=== PATIENT | male | born 1945 | race Caucasian/White ===

== ENCOUNTER 2016-08-01 08:28 | Day surgery (SDC) | payer MEDICARE, BC, OTHER ==
--- NOTE | 2016-07-30 15:16 | HISTORY AND PHYSICAL E ---
History and Physical NAME: JAGDEEP WASHBURN : 1945 AGE: 71Y ADMITTED: 08/01/2016 ROOM: HISTORY OF PRESENT ILLNESS: I saw the patient back in 1988. Colonoscopy did show polyp in the rectum and polyp was inflammatory polyp in the rectum, resected, May 1989. Inflammatory polyp resected in 1988. The patient was seen in 1990 and again he did have history of polyps. The patient did have another colonoscopy 2014 showing diverticulosis and small polyp. SOCIAL HISTORY: He does not smoke. Drinks occasional beer. PHYSICAL EXAMINATION: GENERAL: Pleasant, alert, oriented, in no acute distress. VITAL SIGNS: Blood pressure is 120/80, pulse 80, respirations 18, temp is 98. HEAD, EYES, EARS, NOSE, THROAT: Normal. ABDOMEN: Soft. NEUROLOGIC: Negative. MEDICATIONS: 1. Zyrtec. 2. Aspirin. 3. Prilosec. 4. Diovan. CONCLUSION: Colon screening. PLAN: Colonoscopy scheduled for August 01. DICTATING PHYSICIAN: HUY THOMASON M.D. [id number] PHY#: [id number] ID: [id number] JOB#: [id number] ACCT: [id number] cc:SHAHNAZ CISNEROS M.D., HUY Soliman >
[~2016-08-01 08:28] MED LIST: EPINEPHRINE INJ 1 MG/10 ML DISP.SYRIN ONE; FENTANYL CITRATE INJ/PF 100 MCG/2 ML AMPUL ONE; FLUMAZENIL INJ 0.5 MG/5 ML VIAL IV ONE; GLUCAGON,HUMAN RECOMB 1 MG INJ ONE; GLYCOPYRROLATE INJ 0.4 MG/2 ML VIAL ONE; LIDOCAINE 2% JELLY 30 ML TUBE ONE; MIDAZOLAM 2 MG/2 ML INJ ONE; NALOXONE HCL INJ/PF 0.4 MG/1 ML SDV ONE; ONDANSETRON HCL INJ/PF 4 MG/2 ML SDV ONE; PROMETHAZINE HCL INJ 25 MG/1 ML VIAL ONE
[2016-08-01 10:25] VITALS: BP 146/82
--- NOTE | 2016-08-01 12:07 | DISCHARGE SUMMARY E ---
Discharge Summary NAME: JAGDEEP WASHBURN : 1945 AGE: 71Y ADMITTED: 08/01/2016 DISCHARGED: 08/01/2016 PROCEDURE: Colonoscopy. FINAL DIAGNOSES: 1. Diverticulosis, sigmoid colon and right colon. 2. External hemorrhoids. HISTORY: Patient is 71 and presented for colon exam. He does have a history of cardiac bypass secondary to coronary artery disease and IA 13 years ago. Today's colon shows no polyps and mild diverticulosis. DISCHARGE PLAN: 1. Soft diet for 2 days. 2. Resume all meds. 3. Consider follow-up colon in 5 years. Moderate amount of liquid GoLYTELY in the transverse colon. No polyps. DICTATING PHYSICIAN: HUY THOMASON M.D. 1209M [id number] PHY#: [id number] ID: [id number] JOB#: [id number] ACCT: [id number] cc:SHAHNAZ CISNEROS M.D., MAHMOUD M.D. >
--- NOTE | 2016-08-01 12:08 | OPERATIVE REPORT E ---
Operative Report NAME: JAGDEEP WASHBURN : 1945 AGE: 71Y DATE OF SURGERY: 08/01/2016 ROOM: PREOPERATIVE DIAGNOSIS: COLON SCREENING. POSTOPERATIVE DIAGNOSIS: OCCASIONAL DIVERTICULOSIS RIGHT COLON AND SIGMOID COLON. OPERATION: Colonoscopy. FINDINGS: Mild external hemorrhoids, occasional diverticulosis sigmoid colon, right colon. There was a moderate amount of liquid stool in the transverse colon. SURGEON: HUY THOMASON M.D. ANESTHESIA: Versed 2, fentanyl 50. TISSUE REMOVED OR ALTERED: None. PROCEDURE: Rectal exam; external hemorrhoids. Sigmoid descending colon; occasional diverticulosis. Transverse colon; moderate amount of liquid GoLYTELY. No polyps. Ascending colon; occasional diverticulosis. No polyps. Cecum; normal. Scope withdrawn cecum, ascending, transverse, descending, sigmoid, all the way to the rectum. CONCLUSIONS: DIVERTICULOSIS, NO POLYPS. Because the prep was adequate, but there was a moderate amount of liquid GoLYTELY, consider followup colonoscopy in 5 years. DICTATING PHYSICIAN: HUY THOMASON M.D. 1221M [id number] PHY#: [id number] ID: [id number] JOB#: [id number] ACCT: [id number] cc:SHAHNAZ CISNEROS M.D., MAHMOUD M.D. >
== END 2016-08-01 10:30 | disposition home or self-care (01) ==
LOC: END 08:28
PROVIDERS: ATTEND Specialist
PROC: 0DJD8ZZ Inspection of Lower Intestinal Tract, Via Natural or Artificial Opening Endoscopic (ICD-10-PCS; principal; 2016-08-01 09:00)
DX: Z12.11 Encounter for screening for malignant neoplasm of colon (principal); K57.30 Diverticulosis of large intestine without perforation or abscess without bleeding; K64.4 Residual hemorrhoidal skin tags; I25.10 Atherosclerotic heart disease of native coronary artery without angina pectoris; I25.2 Old myocardial infarction; Z98.61 Coronary angioplasty status; Z79.899 Other long term (current) drug therapy; Z79.82 Long term (current) use of aspirin
CPT/HCPCS: G0121; J2250; J3010; J1610; J2405; 45378; J0171; J2310; J2550; J3490

== ENCOUNTER → 2017-11-25 | Outpatient (CLI) | payer MEDICARE, BC, OTHER ==
--- NOTE | 2017-11-25 14:58 | RADIOLOGY REPORT (SQ) ---
EXAM DESCRIPTION: CHEST PA/LATERAL COMPLETED DATE/TIME: 11/25/2017 2:24 pm REASON FOR STUDY: COUGH COMPARISON: Two-view chest 05/29/2011, 03/13/2009 EXAM PARAMETERS: NUMBER OF VIEWS: two views TECHNIQUE: Digital Frontal and Lateral radiographic views of the chest acquired. RADIATION DOSE: NA LIMITATIONS: none FINDINGS: LUNGS AND PLEURA: No opacities, masses or pneumothorax. No pleural effusion. MEDIASTINUM AND HILAR STRUCTURES: No masses or contour abnormalities. HEART AND VASCULAR STRUCTURES: No cardiomegaly BONES: Old sternotomy for CABG HARDWARE: None in the chest. OTHER: No other significant finding. IMPRESSION: No acute changes. Old sternotomy for CABG. No cardiomegaly. TECHNICAL DOCUMENTATION: JOB ID: [id number] [employer]- All Rights Reserved Reading location - IP/workstation name: [email or web address]
== END ==
LOC: OD 12:58
PROVIDERS: ATTEND Internal Medicine
DX: R05 Cough (principal)
CPT/HCPCS: 71046

== ENCOUNTER → 2018-10-06 | Outpatient (CLI) | payer MEDICARE, BC, OTHER ==
--- NOTE | 2018-10-06 11:31 | RADIOLOGY REPORT (SQ) ---
EXAM DESCRIPTION: KNEE LEFT 4 VIEWS COMPLETED DATE/TIME: 10/06/2018 11:02 am REASON FOR STUDY: ANKYLOSIS,LEFT KNEE M24.662 ANKYLOSIS, LEFT KNEE COMPARISON: None. NUMBER OF VIEWS: Four views. TECHNIQUE: AP, lateral, and both oblique radiographic images acquired of the left knee. LIMITATIONS: None. FINDINGS: MINERALIZATION: Normal. BONES: No acute fracture or dislocation. No worrisome bone lesions. JOINT: No effusion. SOFT TISSUES: Multiple surgical metallic clips in the posterior medial aspect of the distal left thi gh, left knee and proximal visualized left lower extremity. OTHER: No other significant finding. IMPRESSION: 1. NEGATIVE STUDY OF THE LEFT KNEE. TECHNICAL DOCUMENTATION: JOB ID: [id number] [employer] acquired by [employer]- All Rights Reserved Reading location - IP/workstation name: [email or web address]
--- NOTE | 2018-10-06 11:33 | RADIOLOGY REPORT (SQ) ---
EXAM DESCRIPTION: TIBIA FIBULA LEFT COMPLETED DATE/TIME: 10/06/2018 11:02 am REASON FOR STUDY: ANKYLOSIS,LEFT KNEE M24.662 ANKYLOSIS, LEFT KNEE COMPARISON: None. NUMBER OF VIEWS: Two views. TECHNIQUE: Two radiographic images acquired of the left tibia and fibula to include the knee and ank le in at least one projection. LIMITATIONS: None. FINDINGS: MINERALIZATION: Normal. BONES: No acute fracture or dislocation. No worrisome bone lesions. SOFT TISSUES: Multiple surgical metallic clips in the posteromedial soft tissues. OTHER: No other significant finding. IMPRESSION: 1. NEGATIVE STUDY OF THE LEFT TIBIA AND FIBULA. TECHNICAL DOCUMENTATION: JOB ID: [id number] [employer]- All Rights Reserved Reading location - IP/workstation name: [email or web address]
== END ==
LOC: OD 10:13
PROVIDERS: ATTEND Internal Medicine
DX: M24.662 Ankylosis, left knee (principal)